=== PATIENT | female | born 1980 | race Caucasian/White ===

== ENCOUNTER 2017-02-09 09:47 | Emergency (ER) | payer MEDICAID ==
[~2017-02-09] VITALS: Ht 157.5 cm; Wt 81.6 kg
[2017-02-09 09:51] VITALS: BP 135/82
[2017-02-09] MEDS ORDERED: TRAMADOL HCL 50 MG TABLET ONE (10:26)
[2017-02-09] MEDS ORDERED: TRAMADOL HCL 50 MG TABLET PO ONE (10:30)
--- NOTE | 2017-02-09 10:30 | NUR ---
PT BIB SELF, C/O RIGHT WRIST PAIN, 02/19. STATING SHE FEELS A BUMP ON HER WRIST. DENIES ANY TRAUMA TO WRIST. SAFETY AND COMFORT MEASURES IN PLACE, VITALS STABLE, AWAITING MD ORDERS.
--- NOTE | 2017-02-09 10:41 | NUR ---
MEDICATED PATIENT WITH ORAL TRAMADOL.
== END 2017-02-09 11:23 | disposition home or self-care (01) ==
LOC: ER 09:48
DX: M67.431 Ganglion, right wrist (principal)
CPT/HCPCS: 73110; A4606; Z7610

== ENCOUNTER 2018-02-18 15:36 | Emergency (ER) | payer MEDICAID ==
[~2018-02-18] VITALS: Ht 165.1 cm; Wt 74.8 kg
[2018-02-18 15:39] VITALS: BP 138/89
== END 2018-02-18 17:27 | disposition home or self-care (01) ==
LOC: ER 15:37
DX: J20.9 Acute bronchitis, unspecified (principal)
CPT/HCPCS: 71045; 99283; A4606; Z7610; J7030

== ENCOUNTER 2023-05-08 09:01 | Emergency (ER) | payer MEDICAID ==
[~2023-05-08] VITALS: Ht 152.4 cm; Wt 91.6 kg
[2023-05-08] MEDS ORDERED: CLINDAMYCIN HCL 150 MG CAPSULE PO ONE (11:00)
[2023-05-08] MEDS ORDERED: IBUPROFEN 600 MG TABLET PO ONE (11:00)
[2023-05-08] MEDS ORDERED: CLIN300C12 PO (11:03)
[2023-05-08] MEDS ORDERED: IBUPROFEN 600 MG TABLET ONE (11:14)
[2023-05-08] MEDS ORDERED: CLINDAMYCIN HCL 150 MG CAPSULE ONE (11:14)
[2023-05-08 12:03] VITALS: BP 114/86; TEMP 98; O2SAT 98
== END 2023-05-08 12:05 | disposition home or self-care (01) ==
LOC: ER 09:01
DX: N61.0 Mastitis without abscess (principal)

== ENCOUNTER 2023-07-17 09:04 | Emergency (ER) | payer MEDICAID ==
[~2023-07-17] VITALS: Ht 157.5 cm; Wt 91.2 kg
[~2023-07-17 09:04] MED LIST: CLIN300C12 PO
[2023-07-17 09:35] VITALS: TEMP 98.6
[2023-07-17] MEDS ORDERED: IBUPROFEN 600 MG TABLET ONE (11:28)
[2023-07-17] MEDS ORDERED: IBUPROFEN 600 MG TABLET PO ONE (11:30)
[2023-07-17 12:45] VITALS: BP 115/55
[2023-07-17] MEDS ORDERED: IBUP-1955 PO (12:45)
[2023-07-17 13:00] VITALS: O2SAT 96
== END 2023-07-17 13:08 | disposition home or self-care (01) ==
LOC: ER 09:05
DX: M25.562 Pain in left knee (principal); Z79.899 Other long term (current) drug therapy
CPT/HCPCS: 73564-TC

== ENCOUNTER 2023-11-03 15:05 | Emergency (ER) | payer MEDICAID ==
[~2023-11-03] VITALS: Ht 157.5 cm; Wt 89.8 kg
[~2023-11-03 15:05] MED LIST changes: +IBUP-1955 PO
[2023-11-03 15:18] VITALS: O2SAT 98
[2023-11-03] MEDS ORDERED: AMOX875T2 PO (15:49)
[2023-11-03] MEDS ORDERED: IBUP-1953 PO (15:49)
[2023-11-03 15:56] VITALS: BP 108/68; TEMP 98.7; O2SAT 98
== END 2023-11-03 15:56 | disposition home or self-care (01) ==
LOC: ER 15:05
DX: H66.92 Otitis media, unspecified, left ear (principal)